=== PATIENT | female | born 1950 | race Caucasian/White ===

== ENCOUNTER → 2019-02-03 | Outpatient (CLI) | payer MEDICARE | LOC: RAD 15:50 | PROVIDERS: ATTEND Nurse Practitioner Family | DX: R07.9 Chest pain, unspecified (principal) ==

== ENCOUNTER → 2019-02-25 | Outpatient (CLI) | payer MEDICARE ==
--- NOTE | 2019-02-26 13:48 | MRI ---
EXAM DESCRIPTION: Lumbar Spine w/o Contrast CLINICAL HISTORY: PAIN COMPARISON: None. TECHNIQUE: Multiplanar, multisequence MRI of the lumbar spine was performed without contrast. FINDINGS: Lumbar vertebral body heights are maintained. Chronic bilateral pars defects at L5 are seen with 10 mm anterior displacement of L5 on S1. Mild dextrocurvature of the mid lumbar spine. Moderate bone marrow edema seen in the endplates around the anterior T11-12 disc space. Desiccation of the disc spaces throughout the lower thoracic to lumbar spine are seen. Conus medullaris terminates at T12-L1 and is unremarkable. Visualized intra-abdominal and retroperitoneal structures show no acute findings. T11-12: Mild disc space narrowing. 4 to 5 mm broad-based annular disc bulge is seen with mild bilateral facet hypertrophic and degenerative changes including small facet joint effusions. Mild spinal canal stenosis is seen with mild bilateral foraminal encroachment. L1-2 No significant findings. L2-3 Mild diffuse disc space narrowing is seen. 3 mm broad-based annular disc bulge flattens ventral surface of the thecal sac. Mild facet hypertrophy and ligamentum flavum thickening is seen. No spinal canal stenosis or significant foraminal encroachment. L3-4 Disc desiccation and mild loss of disc space height with 2 to 3 mm broad-based annular disc bulge is seen. Mild facet hypertrophic and degenerative changes with ligamentum flavum thickening is seen. Mild spinal canal stenosis is seen with mild bilateral foraminal encroachment. L4-5 Disc desiccation and moderate loss of disc space height is noted with trace retrolisthesis of L4 on L5 with uncovering of the disc. Moderate facet hypertrophic and degenerative changes with ligamentum flavum thickening is seen. Mild left lateral recess encroachment is seen. No significant foraminal encroachment. L5-S1 Disc desiccation and severe loss of disc space height. Mild facet hypertrophic and degenerative changes are also seen. No spinal canal stenosis. Moderate to severe bilateral foraminal encroachment is seen. IMPRESSION: Chronic bilateral L5 spondylolysis with grade 1 L5-S1 spondylolisthesis is seen resulting in at least moderate to severe bilateral foraminal encroachment. Severe disc degenerative changes are also seen at L5-S1. Mild to moderate disc disease and facet arthropathy of the lumbar spine above the L5 level is noted. Electronically signed by: Seferino Cee MD 02/26/2019 1:46 PM CDT
== END ==
LOC: MRI 13:47
PROVIDERS: ATTEND Nurse Practitioner Family
DX: M43.06 Spondylolysis, lumbar region (principal); M51.36 Other intervertebral disc degeneration, lumbar region; M51.37 Other intervertebral disc degeneration, lumbosacral region

== ENCOUNTER 2020-01-12 | Emergency (ER) | payer MEDICARE | END 2020-01-12 18:39 | disposition home or self-care (01) | CPT/HCPCS: 80053; 81001; 85025; 87086; 93005; J0696; J7030; J7050 ==

== ENCOUNTER → 2020-03-16 | Outpatient (CLI) | payer MEDICARE ==
--- NOTE | 2020-03-16 12:11 | RAD ---
EXAM DESCRIPTION: Knee x-ray,Left Complete 4 view CLINICAL HISTORY: 70 years, Female, PAIN IN LEFT KNEE COMPARISON: None TECHNIQUE: 4 x-ray views of the left knee FINDINGS: No fracture or dislocation. Bones appear normally mineralized with normal trabecular pattern. Narrowed appearance of medial and lateral compartments on frontal view with medial and lateral joint line spurring and spurring of the tibial spines. Spurring at the intracondylar notch. Lateral view shows normal position of the patella. Mild posterior patellar spurring. Small suprapatellar knee joint effusion. Normal contour of quadriceps and patellar tendons. Prominent spurring in the anterior and posterior tibial surfaces typical of osteoarthrosis. Mild lateral tilt and subluxation of the patella on patellar sunrise view with prominent spurring of the medial patella and medial femoral trochlea. IMPRESSION: Degenerative osteoarthrosis as described. Electronically signed by: Rashaad Lopez MD 03/16/2020 12:09 PM CDT
== END ==
LOC: RAD 10:50
PROVIDERS: ATTEND Nurse Practitioner Family
DX: M17.12 Unilateral primary osteoarthritis, left knee (principal)

== ENCOUNTER → 2020-08-02 | Outpatient (CLI) | payer MEDICARE ==
--- NOTE | 2020-08-02 15:28 | MRI ---
Study: MRI of the Left Knee. Indication: PAIN IN LEFT KNEE Technique: Multiplanar, multi sequence MRI of the left knee was obtained without intravenous contrast. Comparison: None Findings: Pronounced mucoid degeneration ACL with intrasubstance cystic change. Mild mucoid degeneration PCL. Both the MCL and FCL are slightly thickened and lax with mild increased internal PD signal. In addition, there is mild thickening of the distal IT band. These findings can be seen in the setting of the osteoarthritic knee. No acute tear defect of the medial or lateral collateral structures. Oblique undersurface tear posterior horn and body medial meniscus with free edge fraying as well. Severe tearing and attenuation of the body lateral meniscus which is markedly irregular. Horizontal cleavage tearing anterior horn/root. Irregular free edge and undersurface tearing throughout the posterior horn/root. Grade 3 and mild grade 4 chondral thinning throughout the medial compartment. More pronounced grade 4 chondrosis and cortical remodeling of the central to posterior weightbearing aspects of the lateral compartment. Patellofemoral extensor mechanism intact. Mild patella sánchez. Subtle areas of grade 1 and 2 chondrosis of the patellofemoral compartment. Moderate size knee effusion. No acute fracture. Impression: Mucoid degeneration ACL with intrasubstance cystic change. Complex multidirectional tearing and attenuation lateral meniscus with less pronounced tearing medial meniscus as above. Tricompartmental chondrosis, most pronounced at the lateral compartment with extensive grade 4 chondrosis. Moderate size knee effusion. Electronically signed by: Dioni Moore MD 08/02/2020 3:26 PM CDT
== END ==
LOC: MRI 09:55
PROVIDERS: ATTEND Nurse Practitioner Family
DX: M23.8X2 Other internal derangements of left knee (principal); M94.262 Chondromalacia, left knee; M25.462 Effusion, left knee

== ENCOUNTER → 2020-09-02 | Outpatient (CLI) | payer MEDICARE ==
--- NOTE | 2020-09-02 11:24 | RAD ---
EXAM DESCRIPTION: Pelvis CLINICAL HISTORY: 70 years Female, HIP PAIN LEFT COMPARISON: None. FINDINGS: Single AP view of the left hip shows no left or right hip fracture or malalignment. No hip joint space narrowing, degenerative changes in the pubic symphysis. Degenerative calcification arises from the superior and posterior margins of the left acetabulum. Irregular appearance of the left ilium may be related fracture of uncertain acuity. The sacroiliac joints are unremarkable. IMPRESSION: Abnormal appearance of the left ilium concerning for fracture of uncertain acuity, favor nonacute. If clinically suspicious of acute pelvic injury, CT is recommended for further evaluation. Mild degenerative changes in the left hip, otherwise unremarkable exam. Electronically signed by: Williams Herrera MD 09/02/2020 11:23 AM CDT
== END ==
LOC: RAD 09:33
PROVIDERS: ATTEND Orthopaedic Surgery
DX: M16.12 Unilateral primary osteoarthritis, left hip (principal); M89.9 Disorder of bone, unspecified

== ENCOUNTER → 2020-11-16 | Outpatient (CLI) | payer MEDICARE ==
--- NOTE | 2020-11-16 16:31 | CT ---
EXAM DESCRIPTION: Abdomen w/wo Contrast: Computed Tomography. CLINICAL HISTORY: VOMITING COMPARISON: None. TECHNIQUE: Spiral-axial scans at 5 x 5 mm intervals, from the diaphragms through the upper pelvis, before and after nonionic IV contrast. Standard dose of Gastrografin oral contrast. Coronal and sagittal 2.0 mm reconstructions. 5 x 5 mm Delayed scans, liver through the upper pelvis. No adverse reactions. DLP 1835 mGy-cm. This exam was performed according to our departmental CT dose-optimization program which includes automated exposure control, adjustment of the mA and/or kV according to patient size and/or use of iterative reconstruction technique; to reduce radiation dose to as low as reasonably achievable (ALARA). FINDINGS: Lung bases and pleura: Negative. Liver, stomach, adrenal glands, and spleen: Oral contrast in the stomach and duodenum. No mass effect. Solid organs are negative. Pancreas/Gallbladder/Ducts: Surgical clips gallbladder fossa with no fluid. Common bile duct upper normal limits in caliber. Pancreas is unremarkable. Kidneys and Ureters: Bilateral cortical thinning, probably age-related. Small cyst inferior pole left kidney. Bilateral kidneys are small. No perirenal renal fluid, no hydronephrosis, and no echogenic stones. Mesentery: No free air or free fluid. Aorta: Atherosclerotic calcification increases distally with no significant narrowing and no aneurysm. Small Bowel: Contains oral contrast and normal caliber. Terminal Ileum/Cecum: Normal caliber with oral contrast. Gas and fecal material in the appendix which is normal in caliber. No inflammatory changes. Colon: Minimal fecal matter and distention proximal colon. Diverticula descending colon and proximal sigmoid colon. Rectum incompletely visualized. Multiple diverticula beginning in the distal transverse colon and increasing in number distally. No complications. Spine: Grade 2 anterolisthesis of L5-S1 and significant disc space loss. Bilateral foraminal stenosis. Spondylosis L4-L5 and T11-T12. Bulging posterior disc and calcification L3-L4. Abdominal Wall/Back Soft Tissues: Posterior soft tissue calcifications. Multiple breast calcifications right more than left. Otherwise unremarkable. IMPRESSION: 1. No bowel obstruction, no free air or free fluid. Extravasation of oral contrast. No inflammatory changes involving the gastro-intestinal tract. 2. Diverticulosis distal colon but no complications. Rectum not completely visualized due to technique. 3. Grade 2 anterolisthesis at L5-S1 with foraminal stenosis and spondylosis L4-L5. Also seen on prior lumbar MRI scan February 2019. 4. Multiple bilateral breast calcifications. Film records shows no breast imaging at this facility in the past 18 months. Consider enrolling patient in [facility] breast screening program. Electronically signed by: Maynor Glover MD 11/16/2020 4:29 PM [facility]
== END ==
LOC: CT 10:21
PROVIDERS: ATTEND Nurse Practitioner Family
DX: Z01.812 Encounter for preprocedural laboratory examination (principal); K57.30 Diverticulosis of large intestine without perforation or abscess without bleeding; R92.1 Mammographic calcification found on diagnostic imaging of breast; M47.896 Other spondylosis, lumbar region; M48.07 Spinal stenosis, lumbosacral region; M43.17 Spondylolisthesis, lumbosacral region; R11.0 Nausea